=== PATIENT | female | born 1985 | race Caucasian/White ===

== ENCOUNTER → 2017-04-13 | Outpatient (CLI) | payer MEDICAID, OTHER ==
--- NOTE | 2017-04-14 07:21 | XR ---
EXAMINATION TYPE: XR ribs RT DATE OF EXAM: 04/13/2017 COMPARISON: NONE HISTORY: Pain TECHNIQUE: 4 views submitted FINDINGS: Lung is clear. Osseous structures are intact. Rib cage is intact. IMPRESSION: No acute displaced rib fracture.
== END ==
LOC: RADXRMAIN 17:50
PROVIDERS: ATTEND Family Medicine
DX: R07.81 Pleurodynia (principal)

== ENCOUNTER 2017-06-28 01:34 | Emergency (ER) | payer MEDICAID, OTHER ==
--- NOTE | 2017-06-28 02:06 | ED ---
General Adult HPI - General Chief complaint: Recheck/Abnormal Lab/Rx Stated complaint: [facility] blood exposure Time Seen by Provider: 06/28/17 01:46 Source: patient Mode of arrival: ambulatory Limitations: no limitations - History of Present Illness Initial comments: 32-year-old female patient presented to the emergency department today for evaluation after being sprayed in the face by a patient's blood. Patient states she was at work performing an Accu-Chek when the blood spurted and hit her in the face. Patient states she was wearing contact lenses. She is not completely sure if the blood went into her eye. States she did remove her contacts and flushed the eye immediately after the exposure. She denies any current physical concerns or symptoms. This occurred approximately 30 minutes prior to arrival here in the department. - Related Data Home Medications Medication Instructions Recorded Confirmed ALPRAZolam [Xanax] 0.25 mg PO DAILY PRN 06/28/17 06/28/17 Citalopram Hydrobromide [CeleXA] 40 mg PO DAILY 06/28/17 06/28/17 Dextroamphetamine/Amphetamine 20 mg PO BID 06/28/17 06/28/17 [Adderall] Levothyroxine Sodium [Synthroid] 175 mcg PO DAILY 06/28/17 06/28/17 Allergies Allergy/AdvReac Type Severity Reaction Status Date / Time No Known Allergies Allergy Verified 06/28/17 01:41 Review of Systems ROS Statement: Those systems with pertinent positive or pertinent negative responses have been documented in the HPI. ROS Other: All systems not noted in ROS Statement are negative. Past Medical History Additional Past Medical History / Comment(s): Hypothyroid History of Any Multi-Drug Resistant Organisms: None Reported Past Surgical History: Section, Tonsillectomy Past Psychological History: ADD/ADHD, Anxiety, Depression, Panic Disorder, PTSD Smoking Status: Never smoker Past Alcohol Use History: Rare Past Drug Use History: None Reported General Exam Limitations: no limitations General appearance: alert, in no apparent distress, other (This is a well- developed, well-nourished adult female patient in no acute distress. Vital signs upon presentation were temperature 97.8F, pulse 82, respirations 16, blood pressure 155/88, pulse ox 98% on room air.) Eye exam: Present: normal appearance, PERRL, EOMI. Absent: scleral icterus, conjunctival injection, periorbital swelling ENT exam: Present: normal exam, normal oropharynx, mucous membranes moist Respiratory exam: Present: normal lung sounds bilaterally. Absent: respiratory distress, wheezes, rales, rhonchi, stridor Cardiovascular Exam: Present: regular rate, normal rhythm, normal heart sounds. Absent: systolic murmur, diastolic murmur, rubs, gallop, clicks Neurological exam: Present: alert, oriented X3, CN II-XII intact Psychiatric exam: Present: normal affect, normal mood Skin exam: Present: warm, dry, intact, normal color. Absent: rash Course Vital Signs 06/28/17 01:36 Temperature 97.8 F Pulse Rate 82 Respiratory 16 Rate Blood Pressure 155/88 O2 Sat by Pulse 98 Oximetry Medical Decision Making - Medical Decision Making 32-year-old female patient presents to the emergency department today for evaluation after being exposed to a patient's blood. Physical examination is unremarkable. Patient's blood has been drawn and sent for the appropriate postexposure testing. Source blood is being drawn and sent to lab for testing. Did discuss with patient follow-up with [employer] employee health for further information. I instructed her to return here immediately for any new, worsening, or concerning symptoms. She verbalizes understanding and agrees this plan. Disposition Clinical Impression: Exposure to blood Disposition: HOME SELF-CARE Condition: Good Instructions: Body Substance Exposure (ED) Additional Instructions: Follow-up with employee health for further evaluation. We will contact you regarding results after source blood is tested. Follow-up with S for any further needs. Return here immediately for any new, worsening, or concerning symptoms. Referrals: Penelope Terry MD [Primary Care Provider] - 1-2 days Time of Disposition: 02:06
[2017-06-28 23:17] VITALS: BP 155/88; PULSE 82; RESP 16; TEMP 97.8
== END 2017-06-28 02:27 | disposition home or self-care (01) ==
LOC: EC 01:34
DX: Z77.21 Contact with and (suspected) exposure to potentially hazardous body fluids (principal); E03.9 Hypothyroidism, unspecified; F41.9 Anxiety disorder, unspecified; F32.9 Major depressive disorder, single episode, unspecified; F43.10 Post-traumatic stress disorder, unspecified; F90.9 Attention-deficit hyperactivity disorder, unspecified type
CPT/HCPCS: 99283

== ENCOUNTER 2021-03-31 07:04 | Day surgery (SDC) | payer OTHER ==
[2021-03-29 11:46] VITALS: BMI 37.5
--- NOTE | 2021-03-30 20:04 | P.HPOR ---
History of Present Illness H&P Date: 03/30/21 Chief Complaint: Left DeQuervain's Tenosynovitis Hand Surgery H&P Note Age: 35 year Height: 5'7" Weight: 230 lbs BMI: 36.02 kg/m2 Subjective: This is a 35 year old female that presents today for evaluation regarding left radial sided wrist pain that has been worsening over the the last 6 months. Patients states she has been having sharp pain that is worse with lifting objects that is located over the radial aspect of the wrist. She denies any paresthesias. She has been seeing Dr. Mc for her symptoms and has been wearing a splint during the day time. She has also received 2 injections with the most recent being in January but states the injections are providing some relief but she is still having substantial discomfort. She has no other complaints at this time. Physical Examination: LUE: AIN/PIN/Radial/Ulnar/Median motor intact. Radial/Ulnar/Median SILT. 2+/4 Radial/Ulnar pulses palpated. Negative CMC grind, positive David. TTP over 1st dorsal compartment. NTTP over A1 Amber of thumb. Wrist flexion/extension 80/80 Impression: 1.) Left DeQuervains Tenosynovitis Plan: Diagnosis and treatment options were discussed with the patient. She has failed conservative treatment for her left DeQuervains tenosynovitis and states the injections and splinting are no longer helping. We discussed that she is a candidate for a left first dorsal compartment release since her symptoms are still present despite these conservative measures. Risks and benefits of surgery including recurrence, bleeding, damage to surrounding tissue, infection and risks of anesthesia were discussed and she would like to proceed with surgical intervention. We will tentatively plan for a left first dorsal compartment release in the near future. All questions were answered. -Curtis Browning DO Orthopedic Hand/Upper Extremity Surgeon Past Medical History Past Medical History: Thyroid Disorder Additional Past Medical History / Comment(s): Tinnitus. Hypothyroid. Mirena IUD. History of Any Multi-Drug Resistant Organisms: None Reported Past Surgical History: Section, Tonsillectomy Past Anesthesia/Blood Transfusion Reactions: No Reported Reaction Past Psychological History: ADD/ADHD, Anxiety, Depression, Panic Disorder, PTSD Smoking Status: Never smoker Past Alcohol Use History: Rare Past Drug Use History: None Reported - Past Family History Mother Family Medical History: Cancer Additional Family Medical History / Comment(s): Breast cancer. Medications and Allergies Home Medications Medication Instructions Recorded Confirmed Type Citalopram Hydrobromide [CeleXA] 40 mg PO QAM 06/28/17 03/29/21 History Ibuprofen 800 mg PO Q8H PRN 03/29/21 03/29/21 History Levothyroxine Sodium 25 mcg PO QAM 03/29/21 03/29/21 History Levothyroxine Sodium 200 mcg PO QAM 03/29/21 03/29/21 History Melatonin 10 mg PO HS PRN 03/29/21 03/29/21 History buPROPion XL [Wellbutrin XL] 150 mg PO BID 03/29/21 03/29/21 History Allergies Allergy/AdvReac Type Severity Reaction Status Date / Time No Known Allergies Allergy Verified 03/29/21 11:37 Physical Examination Osteopathic Statement: *. No significant issues noted on an osteopathic structural exam other than those noted in the History and Physical/Consult.
[~2021-03-31 07:04] MED LIST: HYDROmorphone 0.5 MG/0.5 ML SYRINGE IVP PRN; LACTATED RINGERS 1,000 ML IV SCH
[2021-03-31 07:31] VITALS: RESP 16; TEMP 97.2
[2021-03-31] MEDS ORDERED: ONDANSETRON 4 MG/2 ML VIAL ONE (07:39)
[2021-03-31] MEDS ORDERED: ONDANSETRON 4 MG/2 ML VIAL IVP ONE (07:42)
[2021-03-31] MEDS ORDERED: DEXAMETHASONE SOD PHOSPHATE 4 MG/ML 1 ML VIAL IVP ONE (07:43)
[2021-03-31] MEDS ORDERED: MIDAZOLAM 2 MG/2 ML VIAL ONE (07:52)
[2021-03-31] MEDS ORDERED: LIDOCAINE 1% INJ 10MG/ML (20 ML MDV) ONE (07:52)
[2021-03-31] MEDS ORDERED: fentaNYL (PF) 50 MCG/ML 2 ML AMP ONE (07:52)
[2021-03-31] MEDS ORDERED: PROPOFOL 10 MG/ML 20 ML VIAL IV ONE (07:52)
[2021-03-31] MEDS ORDERED: LIDOCAINE 1% INJ 10MG/ML (20 ML MDV) SQ ONE (08:05)
[2021-03-31] MEDS ORDERED: BUPIVACAINE (PF) 0.5% 30 ML VIAL SQ ONE (08:05)
[2021-03-31 08:48] VITALS: BP 115/77; PULSE 86
--- NOTE | 2021-03-31 08:54 | P.OP ---
Date of Procedure: 03/31/21 Preoperative Diagnosis: Left DeQuervains Tenosynovitis Postoperative Diagnosis: Same Procedure(s) Performed: Left wrist first dorsal extensor compartment release Anesthesia: MAC Surgeon: Curtis Browning Estimated Blood Loss (ml): 0 Pathology: none sent Condition: stable Disposition: PACU Description of Procedure: This is a 35 year old female with left DeQuervain's tenosynovitis that has failed conservative treatment. Risks and benefits of surgery were discussed with the patient including bleeding, damage to surrounding tissue, infection, need for further surgery as well as risks of anesthesia including pulmonary embolism and even and the patient wished to proceed with surgical intervention. The patients was seen in the pre-operative area by myself. Consent and H&P were completed and updated. The correct extremity was marked in the pre- operative area by myself and all other questions were answered. Operative Narrative: The patient was brought to the operating room by the department of anesthesia. They remained on the portable stretcher and a rolling hand table was brought to the side of the operative extremity. The left wrist was then prepped with alcohol swab and a mixture of 0.5% bupivicaine and 1% lidocaine was injected proximal to the area of the first dorsal compartment in the area of the superficial radial sensory nerve. The patient was then drifted off to sleep by the department of anesthesia under MAC anesthesia. A nonsterile tourniquet was then applied to the operative extremity and the left upper extremity was then prepped and draped in normal sterile fashion. Pre-operative time out was performed indicating the correct patient, procedure and laterality. All in the room agreed. Pre-operative antibiotics were given prior to skin incision. The operative extremity was the exsanguinated with an esmarch bandage and the tourniquet was inflated to 250mmHg. 15 blade scalpel was used to make a horizontal skin incision centered over the first dorsal compartment of the left wrist. Blunt dissection was taken down to the proximal edge of the first dorsal compartment while taking care to identify and protect branches of the superficial radial sensory nerve. The first dorsal compartment was released in it entirety from proximal to distal. APL and EPB tendons were identified. Of note, the patient did have a completely separate fibro-osseous tunnel for the EPB tendon and this was also released in it's entirety. Traction tenolysis was performed on EPB/APL tendons and they were able to glide freely. Skin closure was performed with 4-0 monocryl suture, mastisol and steri strips. Sterile soft dressing was applied consisting of 4x4's cast padding and an bolivar wrap. Tourniquet was let down and the hand had immediate normal perfusion. The patient was then woken by the department of anesthesia and transferred to PACU in stable condition. Curtis Browning D.O. Orthopedic Hand/Upper Extremity Surgeon
== END 2021-03-31 09:09 | disposition home or self-care (01) ==
LOC: OR 07:04
PROVIDERS: ATTEND Orthopaedic Surgery Hand Surgery
DX: M65.4 Radial styloid tenosynovitis [de Quervain] (principal); H93.19 Tinnitus, unspecified ear; E03.9 Hypothyroidism, unspecified; F41.9 Anxiety disorder, unspecified; F32.9 Major depressive disorder, single episode, unspecified; F41.0 Panic disorder [episodic paroxysmal anxiety]; F43.10 Post-traumatic stress disorder, unspecified; Z97.5 Presence of (intrauterine) contraceptive device; Z98.891 History of uterine scar from previous surgery; Z98.890 Other specified postprocedural states; Z80.3 Family history of malignant neoplasm of breast; Z79.890 Hormone replacement therapy; Z79.899 Other long term (current) drug therapy
CPT/HCPCS: 81025; 25000; J2250; J1100; J0690; J2405; J2001; J3010; J2704

== ENCOUNTER → 2022-04-13 | Outpatient (CLI) | payer OTHER ==
--- NOTE | 2022-04-13 15:39 | P.SLEEP ---
History of Present Illness DATE: 04/13/2022 CONSULTATION/NEW PATIENT EVALUATION HISTORY OF PRESENT ILLNESS/SLEEP-WAKE EVALUATION: 36year old lady had been ev aluated in the sleep center for possible obstructive sleep apnea hypopnea syndrome. SLEEP SCHEDULE: Usually sleep schedule on weekdays 911 PM until 78 AM, during days off 1112 until 911 AM. FALLING ASLEEP: Sometimes patient has problems with falling asleep, has TV set and bedroom. DURING SLEEP: Patient usually sleeps on the side position with extremely loud snoring and witnessed episodes stopped breathing during the sleep. No history of hypnogogical hallucinations, sleep paralysis, or cataplexy. DURING THE DAY/WAKE STATE: Patient feels significant sleepiness during the day. [place] sleepiness scale is in high range of 16 and this while patient is on treatment with Adderall.[]. PAST MEDICAL HISTORY: Depression, anxiety, ADHD, hypothyroidism. PAST SURGICAL HISTORY: 2, left wrist surgery. MEDICATIONS: Celexa 40 mg once a day, levothyroxine 225 g once a day, Adderall extended release 20 mg once a day, vitamin D, melatonin 5 mg occasionally. SOCIAL HISTORY: Negative for smoking, alcohol consumption occasional. FAMILY HISTORY: Asthma, cancer. REVIEW OF SYSTEMS: Loud snoring, multiple awakenings from sleep, significant excessive daytime sleepiness. No fevers. No double vision. No recent chest pain. No shortness of breath. No abdominal pain. No bleeding episodes. No blood in urine. No seizure episodes. PHYSICAL EXAMINATION: GENERAL: A pleasant patient without any distress. VITAL SIGNS: BP 110/75, HR 74, RR 16, weight 249.2 pounds, height 5 foot 8 inches, body mass index 37.8. HEENT: PERRLA, EOMI. Evaluation of oropharynx showed tongue protrudes midline, low position of soft palate Mallampati 4. NECK: Supple. No JVD. Thyroid is not palpable. 17 inches in circumference. LUNGS: Clear to percussion and to auscultation. Good air exchange. No wheezing or rhonchi. HEART: S1, S2 regular. No murmurs, gallops or rubs. ABDOMEN: Soft and nontender. Bowel sounds are present. No organomegaly appreciated. Obese EXTREMITIES: No clubbing or cyanosis. STEEL HANDLER: Awake, alert, and oriented x3. Cranial nerves 2 to 7 intact. There is no fasciculation or atrophy noted. No focal deficits observed. ASSESSMENT: 1. Loud snoring, witnessed episodes of sleep apneas, extremely low position of soft palate, sleepiness. Obstructive sleep apnea hypopnea syndrome. 2. Significant excessive daytime sleepiness with the very high [place] Sleepiness Scale of 16 while patient is on treatment with Adderall dictate necessity to include the hypersomnia and narcolepsy type II in differential diagnosis as additional diagnosis. 3 obesity body mass index 37.8. 4. Depression. 5 and anxiety. 6. Hypothyroidism. 7. History of ADHD. 8. Status post tonsillectomy. 9. Status post x 2. 10. Status post left wrist surgery. PLAN: 1. Polysomnography for evaluation of patient's breathing during sleep. 2. CPAP/BiPAP titration if sleep study confirms obstructive sleep apnea- hypopnea syndrome. 3. Preferable position during sleep on the side. 4. No driving if patient feels any sleepiness. Patient is aware of civil and criminal liability for unsafe driving. 5. Sleep hygiene with regular sleep time for at least 7.5-8 hours. 6. Watching and losing weight. Thank you very much for referring this patient for consultation. Sincerely, Stanislav Walker MD, PhD, FAASM. Diplomat of [place] [employer], Sleep Medicine Board by [place] [employer] [place] [employer] [facility] [place] Past Medical History Additional Past Medical History / Comment(s): Hypothyroid History of Any Multi-Drug Resistant Organisms: None Reported Past Surgical History: Section, Tonsillectomy Past Psychological History: ADD/ADHD, Anxiety, Depression, Panic Disorder, PTSD Past Alcohol Use History: Rare Past Drug Use History: None Reported Medications and Allergies Home Medications Medication Instructions Recorded Confirmed Type Citalopram Hydrobromide [CeleXA] 40 mg PO QAM 06/28/17 03/31/21 History Ibuprofen 800 mg PO Q8H PRN 03/29/21 03/31/21 History Levothyroxine Sodium 25 mcg PO QAM 03/29/21 03/31/21 History Levothyroxine Sodium 200 mcg PO QAM 03/29/21 03/31/21 History Melatonin [Melatonin ER] 10 mg PO HS PRN 03/29/21 03/31/21 History buPROPion XL [Wellbutrin XL] 150 mg PO BID 03/29/21 03/31/21 History Allergies Allergy/AdvReac Type Severity Reaction Status Date / Time No Known Allergies Allergy Verified 03/31/21 07:25 Sleep Note - Sleep Note Sleep Note: Temperature: Pulse Rate: Respiratory Rate: Blood Pressure: SpO2: Height: Weight: BMI: Neck Circumference:
== END ==
LOC: SLEEP 15:03
PROVIDERS: ATTEND Internal Medicine
DX: G47.33 Obstructive sleep apnea (adult) (pediatric) (principal); F32.A Depression, unspecified; F41.9 Anxiety disorder, unspecified; E03.9 Hypothyroidism, unspecified; Z86.59 Personal history of other mental and behavioral disorders; Z90.89 Acquired absence of other organs; Z98.890 Other specified postprocedural states
CPT/HCPCS: 99211

== ENCOUNTER 2024-12-25 10:18 | Inpatient (IN) | payer OTHER ==
[2024-12-25] MEDS: LACTATED RINGERS 1,000 ML IV ONE (10:40)
[2024-12-25] MEDS ORDERED: METHYLERGONOVINE 0.2 MG/ML 1 ML AMP IM PRN (10:55)
[2024-12-25] MEDS ORDERED: OXYTOCIN 10 UNIT/ML 1 ML VIAL IM PRN (10:55)
[2024-12-25] MEDS ORDERED: CARBOPROST TROMETHAMINE 250 MCG/ML 1 ML AMP IM PRN (10:55)
[2024-12-25] MEDS ORDERED: TRANEXAMIC 1,000 MG/100ML-NACL 1,000 MG in EMPTY BAG 1 BAG IV PRN (10:55)
[2024-12-25] MEDS ORDERED: OXYTOCIN 30 UNITS/500 ML NS 30 UNIT in SALINE 1 500ML.BAG IV SCH (11:00)
[2024-12-25 11:09] LABS: Basophils # (A) 0.03 10*3/uL (0.00-0.10); Basophils % (A) 0.3 %; Eosinophils # (A) 0.05 10*3/uL (0.04-0.35); Eosinophils % (A) 0.5 %; HCT 35.3 % (37.2-46.3); HGB 11.9 g/dL (12.0-15.0); Lymphocytes # (A) 1.78 10*3/uL (0.90-5.00); Lymphocytes % (A) 18.6 %; MCH 29.3 pg (27.0-32.0); MCHC 33.7 g/dL (32.0-37.0); MCV 86.9 fL (80.0-97.0); Monocytes # (A) 0.58 10*3/uL (0.20-1.00); Monocytes % (A) 6.1 %; Neutrophils # (A) 7.00 10*3/uL (1.80-7.70); Neutrophils % (A) 73.0 %; Platelet Count 232 10*3/uL (140-440); RBC 4.06 10*6/uL (4.10-5.20); RDW 14.2 % (11.5-14.5); WBC 9.58 10*3/uL (4.50-10.00)
[2024-12-25] MEDS: CITRIC ACID-SODIUM CITRATE 15 ML CUP PO ONE (11:43)
[2024-12-25] MEDS ORDERED: MORPHINE SULFATE (PF) 0.3 MG/0.3 ML SYR ONE (12:07)
[2024-12-25] MEDS ORDERED: NALBUPHINE (ANES) 10 MG/ML - 1 ML AMP ONE (12:07)
[2024-12-25] MEDS ORDERED: ePHEDrine 50 MG/ML 1 ML VIAL ONE (12:07)
[2024-12-25] MEDS ORDERED: ONDANSETRON 4 MG/2 ML VIAL ONE (12:07)
[2024-12-25] MEDS ORDERED: OXYTOCIN 30 UNITS/500 ML NS BAG IV ONE (12:07)
[2024-12-25] MEDS ORDERED: ZOLPIDEM 5 MG TAB PO PRN (12:57)
[2024-12-25] MEDS ORDERED: diphenhydrAMINE 50 MG/ML 1 ML VIAL IVP PRN (12:57)
[2024-12-25] MEDS ORDERED: NALOXONE 0.4 MG/ML 1 ML VIAL IV PRN (12:57)
[2024-12-25] MEDS ORDERED: ONDANSETRON 4 MG/2 ML VIAL IVP PRN (12:57)
[2024-12-25] MEDS ORDERED: METOCLOPRAMIDE 5 MG/ML 2 ML VIAL IVP PRN (12:57)
[2024-12-25] MEDS ORDERED: diphenhydrAMINE 25 MG CAP PO PRN (12:57)
--- NOTE | 2024-12-25 13:02 | P.HPOB ---
History of Present Illness H&P Date: 12/25/24 Chief Complaint: IUP at 39-2/7 weeks, history of section desires repeat This is a 39-year-old 3 para 2-0-0-2 that presented to labor and delivery at 39-2/7 weeks for scheduled repeat section. Estimated due date of 12/30 based on good dating parameters. Patient has been receiving routine care which has been complicated by diagnosis of gestational diabetes. Blood sugars have been well-controlled with diet alone. Patient notes good movement denies vaginal bleeding or loss of fluid. On blood work this patient is O+ of a negative, rubella status immune, hepatitis B surface engine negative, HIV negative, RPR nonreactive, grew beta strep culture negative. Review of Systems Constitutional: Denies chills, Denies fatigue, Denies fever Ears, nose, mouth and throat: Denies headache Cardiovascular: Reports leg edema Respiratory: Denies dyspnea Gastrointestinal: Denies constipation, Denies diarrhea, Denies nausea, Denies vomiting Genitourinary: Reports Past Medical History Additional Past Medical History / Comment(s): Hypothyroid History of Any Multi-Drug Resistant Organisms: None Reported Past Surgical History: Section, Tonsillectomy Past Anesthesia/Blood Transfusion Reactions: No Reported Reaction Past Psychological History: ADD/ADHD, Anxiety, Depression, Panic Disorder, PTSD Smoking Status: Never smoker Past Alcohol Use History: None Reported, Rare Past Drug Use History: None Reported - Past Family History Father Family Medical History: No Reported History Medications and Allergies Home Medications Medication Instructions Recorded Confirmed Type Levothyroxine Sodium 25 mcg PO QAM 03/29/21 12/25/24 History Levothyroxine Sodium 200 mcg PO QAM 03/29/21 12/25/24 History metFORMIN HCL 1,000 mg PO DAILY 12/25/24 12/25/24 History Allergies Allergy/AdvReac Type Severity Reaction Status Date / Time No Known Allergies Allergy Verified 12/25/24 10:51 Exam Osteopathic Statement: *. No significant issues noted on an osteopathic structural exam other than those noted in the History and Physical/Consult. Vital Signs Temp Pulse Resp BP Pulse Ox 12/25/24 10:59 97.0 F L 78 16 125/71 97 Intake and Output 12/24/24 12/25/24 12/25/24 22:59 06:59 14:59 Other: Weight 108.862 kg Targeted physical exam was performed this date in general is a well-nourished well-developed female in no acute distress, breathing is nonlabored, heart has a regular rate and rhythm, abdomen is gravid, cervical exam is deferred, heart tones noted to be category 1 and she is not vida. Results Result Diagrams: 12/25/24 10:40 Abnormal Lab Results - Last 24 Hours (Table) 12/25/24 Range/Units 10:40 RBC 4.06 L (4.10-5.20) 10*6/uL Hgb 11.9 L (12.0-15.0) g/dL Hct 35.3 L (37.2-46.3) % Immature Gran # 0.14 H (0.00-0.04) 10*3/uL Assessment and Plan (1) Term Current Visit: Yes Status: Acute Code(s): Z34.90 - ENCNTR FOR SUPRVSN OF NORMAL , UNSP, UNSP TRIMESTER SNOMED Code(s): 92222949 (2) GDM (gestational diabetes mellitus), class A1 Current Visit: Yes Status: Acute Code(s): O24.410 - GESTATIONAL DIABETES MELLITUS IN , DIET CONTROLLED SNOMED Code(s): 72319637 (3) History of section Current Visit: Yes Status: Acute Code(s): Z98.891 - HISTORY OF UTERINE SCAR FROM PREVIOUS SURGERY SNOMED Code(s): 529950198 Plan: Admit to labor and delivery Proceed with repeat section per patient preference Informed consent is obtained, risks are reviewed including but not limited to infection, bleeding, damage to bladder, bowel, injury. Questions are answered and patient states understanding anesthesia into see patient
--- NOTE | 2024-12-25 13:05 | P.OP ---
Date of Procedure: 12/25/24 Preoperative Diagnosis: IUP at 39-2/7 weeks, history of section x 2 desires repeat Postoperative Diagnosis: Same Procedure(s) Performed: Repeat section Anesthesia: spinal Surgeon: Danyell Watts Certified Adapted Physical Educator #1: Cat Herrera Estimated Blood Loss (ml): 500 IV fluids (ml): 1,600 Urine output (ml): 200 (Clear yellow) Pathology: none sent Condition: stable Disposition: observation Indications for Procedure: History of section x 2, desires repeat Operative Findings: Viable male delivered at 1228, weight of 7 pounds 11 ounces, Apgars of 9 and 9 at 1 and 5 minutes respectively Description of Procedure: The patient was prepped and draped in the usual fashion after spinal anesthesia was administered by the anesthesia department. A Pfannenstiel incision was made and extended of the abdominal cavity without difficulty. The bladder peritoneum was elevated and incised and reflected distally. A 2 cm incision was made in the transverse plane of the lower uterine segment to enter the uterus at which time clear fluid was noted. The incision was extended in both directions using the bandage scissors. The head was encountered within the field and delivered up and through the incision where the nose and mouth were thoroughly suctioned. Vacuum assist was used to bring the head through the hysteroto my incision, remainder of the infant was delivered onto the surgical field where the cord was doubly clamped, cut, and the infant was passed for resuscitative measures with weight and Apgars as noted above. The placenta was delivered manually, intact, and was grossly normal with a grossly normal three-vessel cord. The uterus was exteriorized and the interior cavity of the uterus swept of any remaining placental and membranous fragments with a laparotomy sponge. The margins of the incision were grasped with Allis clamps and the incision closed in 2 layers. First layer was a running locking layer of 0 Vicryl from margin to margin followed by a second layer of imbricating 0 Vicryl from margin to margin. Any small points of bleeding were then made hemostatic with the Bovie. Once hemostasis was achieved, the posterior cul-de-sac was suctioned with a guard and the uterine and ovarian findings are as noted above. The uterus was replaced within the abdominal cavity and the gutters swept of any remaining blood fluid or clot. The incision was again reexamined and hemostasis was noted to be excellent. Any small point of bleeding were made hemostatic with the Bovie. Once hemostasis was achieved the parietal peritoneum was loosely reapproximated. The layer of muscles were examined and made hemostatic with the Bovie. Attention was then turned to the fascia which was closed with 0 Vicryl in a running fashion from 1 lateral edge to the other. The subcutaneous tissues were irrigated, made hemostatic with the Bovie, and reapproximated with a running stitch of 30 Vicryl. The skin was reapproximated with 4-0 Vicryl. Estimated blood loss for the case was approximately 500 mL. All sponge instrument and needle counts are correct. There were no complications. The patient tolerated the procedure well and proceeded to the recovery room in stable condition. Both mother and infant are resting comfortably in recovery. A physician certified surgical tech/first assistant was utilized for the entire procedure due to the need for tissue retraction, dissection of vital structures, prevention and management of blood loss and reduction in overall operative and anesthesia time as is the standard of care.
[2024-12-25] MEDS: ACETAMINOPHEN IV (For NPO) 1,000 MG in EMPTY BAG 1 BAG IVPB ONE (13:46)
[2024-12-25] MEDS: LACTATED RINGERS 1,000 ML IV SCH ×2 (13:47→19:51)
[2024-12-25] MEDS: diphenhydrAMINE 50 MG/ML 1 ML VIAL IVP PRN (17:35)
[2024-12-25] MEDS: SENNOSIDES-DOCUSATE SODIUM 1 EACH TAB PO SCH (21:21)
[2024-12-25] MEDS: IBUPROFEN IV 800 MG in SODIUM CHLORIDE 0.9% 250 ML IV ONE (21:23)
[2024-12-25] MEDS: ACETAMINOPHEN TAB 500 MG TAB PO SCH (21:54)
[2024-12-26] MEDS: IBUPROFEN 800 MG TAB PO SCH (04:36)
[2024-12-26 07:24] LABS: Basophils # (A) 0.02 10*3/uL (0.00-0.10); Basophils % (A) 0.2 %; Eosinophils # (A) 0.06 10*3/uL (0.04-0.35); Eosinophils % (A) 0.6 %; HCT 30.2 % (37.2-46.3); Lymphocytes # (A) 1.69 10*3/uL (0.90-5.00); Lymphocytes % (A) 16.3 %; MCH 29.7 pg (27.0-32.0); MCHC 33.1 g/dL (32.0-37.0); MCV 89.6 fL (80.0-97.0); Monocytes # (A) 0.66 10*3/uL (0.20-1.00); Monocytes % (A) 6.4 %; Neutrophils # (A) 7.84 10*3/uL (1.80-7.70); Neutrophils % (A) 75.8 %; Platelet Count 191 10*3/uL (140-440); RBC 3.37 10*6/uL (4.10-5.20); RDW 14.4 % (11.5-14.5); WBC 10.34 10*3/uL (4.50-10.00)
[2024-12-26 07:26] LABS: HGB 10.0 g/dL (12.0-15.0)
--- NOTE | 2024-12-26 12:24 | P.PNOBGPC ---
Subjective - Subjective Principal diagnosis: Postop day 1, repeat section Interval history: Patient is doing well postoperatively. She is ambulating and voiding without difficulty. She states her pain is moderately well-controlled. Her lochia is minimal. Patient reports: Reports appetite normal, Reports voiding normally, Reports pain well controlled, Reports ambulating normally : doing well, nursing well Objective - Vital Signs Latest vital signs: Vital Signs Temp Pulse Resp BP Pulse Ox 12/26/24 08:50 98.0 F 72 16 99/63 98 12/26/24 01:00 80 16 118/69 98 12/25/24 16:00 98.0 F 75 16 123/59 97 12/25/24 15:00 75 16 121/67 95 12/25/24 14:45 73 16 120/57 97 12/25/24 14:30 78 16 122/56 12/25/24 14:15 68 16 119/59 12/25/24 14:00 70 16 120/59 12/25/24 13:45 73 16 119/56 98 12/25/24 13:30 75 16 126/62 12/25/24 13:15 87 16 121/58 94 L 12/25/24 13:00 97.0 F L 79 16 122/59 94 L Intake and Output 12/25/24 12/26/24 12/26/24 22:59 06:59 14:59 Output Total 400 1900 Balance -400 -1900 Output: Urine 400 1900 Uretheral (Reyes) 900 Output, Quantitative 0 Blood Loss Other: # Voids 0 - Exam Extremities: Present: normal, edema Abdomen: Present: normal appearance, soft Incision: Present: normal, dry, intact Uterus: Present: normal, firm - Labs Labs: Abnormal Lab Results - Last 24 Hours (Table) 12/26/24 Range/Units 07:11 WBC 10.34 H (4.50-10.00) 10*3/uL RBC 3.37 L (4.10-5.20) 10*6/uL Hgb 10.0 L D (12.0-15.0) g/dL Hct 30.2 L (37.2-46.3) % Immature Gran # 0.07 H (0.00-0.04) 10*3/uL Neutrophils # 7.84 H (1.80-7.70) 10*3/uL Assessment and Plan (1) Term Current Visit: Yes Status: Acute Code(s): Z34.90 - ENCNTR FOR SUPRVSN OF NORMAL , UNSP, UNSP TRIMESTER SNOMED Code(s): 85374902 (2) GDM (gestational diabetes mellitus), class A1 Current Visit: Yes Status: Acute Code(s): O24.410 - GESTATIONAL DIABETES MELLITUS IN , DIET CONTROLLED SNOMED Code(s): 80318814 (3) History of section Current Visit: Yes Status: Acute Code(s): Z98.891 - HISTORY OF UTERINE SCAR FROM PREVIOUS SURGERY SNOMED Code(s): 943653904 (4) Status post section Current Visit: Yes Status: Acute Code(s): Z98.891 - HISTORY OF UTERINE SCAR FROM PREVIOUS SURGERY SNOMED Code(s): 482726983 Plan: Doing well postoperatively. Plan to continue routine postoperative care and anticipate discharge home tomorrow
--- NOTE | 2024-12-26 14:49 | P.PN ---
Progress Note - Text Progress Note Date: 12/26/24 Anesthesia Postop day 1 Subjective: Status Post section with Duramorph. Patient seen and examined. Doing well without complaint. VAS 0. No nausea vomiting or pruritus. Denies fever. Gross lower extremity strength intact. Without apparent anesthetic complications. Objective: Vital signs reviewed Heart: Regular Rate Lungs: Good chest excursion Abdomen: Appears nondistended Assessment: Status post section with Duramorph postop day 1 Plan: 1. Continue current care with your medical management. Anticipated end to the duration of the Duramorph around surgery time today. You may see increased pain needs around this time. 2. This note was dictated using [employer]is software. Please be advised there is a potential for misspellings or errors in boil off machine operator cloth.
[2024-12-26] MEDS ORDERED: IBUPROFEN 800 MG TAB PO SCH (17:30)
[2024-12-26] MEDS: SIMETHICONE 80 MG CHEWABLE PO PRN (22:08)
[2024-12-27 01:25] VITALS: RESP 16
[2024-12-27 08:43] VITALS: BP 104/62; PULSE 72; TEMP 97.2
--- NOTE | 2024-12-27 11:14 | P.DS ---
Providers Date of admission: 12/25/24 10:18 Expected date of discharge: 12/27/24 Attending physician: Danyell Watts Primary care physician: Stated None - Discharge Diagnosis(es) (1) Status post section Current Visit: Yes Status: Acute Hospital Course: The patient is a 39-year-old 3 para 2-0-0-2 who presented to labor and delivery at 39-2/7 weeks for repeat section. Her has been complicated by gestational diabetes with excellent diet control and reassuring testing weekly after 32 weeks. On labor delivery, all signs are reassuring with a category 1 heart rate tracing. She was taken to the operating room where she underwent repeat low-transverse section in an uncomplicated fashion and was delivered of a viable 7 pound 11 ounce baby boy with Apgars of 9 at 1 minute and 9 at 5 minutes. Her and postoperative course was unremarkable with vital signs remaining stable and her temperature was afebrile throughout. She was deemed stable for discharge on and postoperative day #2. She was discharged home to follow-up in the office in 2 weeks for an incision check in 6 weeks routinely. Discharge instructions included calling for any significantly increased bleeding or foul- smelling lochia, significantly increased fever abdominal pain, perineal complaints, breast complaints, incisional complaints, or anything else that concerned her. She was additionally instructed to have nothing in the vagina for at least 6 weeks time to include intercourse and to abstain from any heavy lifting over the same period of time. She was lastly instructed to do no driving until off of all pain medications or 2 weeks time, whichever came first. She understood her instructions and agrees to follow-up as noted above. Discharge medications included continued vitamins as she has opted to breast-feed. She additionally was to use [id number] analgesic pain me dications. She was provided with a prescription for oxycodone 5 mg, 1-2 p.o. every 6 hours as needed pain, #20 dispensed with no refills. Maternal blood type is O+ and rubella status is immune. Discharge hemoglobin and hematocrit were 10.0 and 30.2 respectively. Procedures: #1. Repeat low-transverse section Patient Condition at Discharge: Stable Plan - Discharge Summary New Discharge Prescriptions: No Action Levothyroxine Sodium 25 mcg PO QAM Levothyroxine Sodium 200 mcg PO QAM metFORMIN HCL 1,000 mg PO DAILY Discharge Medication List Levothyroxine Sodium 25 mcg PO QAM 03/29/21 [History] Levothyroxine Sodium 200 mcg PO QAM 03/29/21 [History] metFORMIN HCL 1,000 mg PO DAILY 12/25/24 [History] Follow up Appointment(s)/Referral(s): Danyell Watts DO [Doctor of Osteopathic Medicine] - 01/08/25 1:15 pm (Appointment 02/06/2025 @ 1:15 PM) Patient Instructions/Handouts: (DC), (GEN) Activity/Diet/Wound Care/Special Instructions: [id number] ibuprofen 600 mg or 3 tablets every 6 hours as needed for pain. No tub baths or intercourse until 6 weeks . Routine postoperative check in 2 weeks. Should she having concerns prior to this appointment she is urged to call the office and be seen prior Discharge Disposition: HOME SELF-CARE
== END 2024-12-27 13:13 | disposition home or self-care (01) | DRG 788 ==
LOC: 4FBP 10:18
PROVIDERS: ADMIT Obstetrics & Gynecology Obstetrics; ATTEND Obstetrics & Gynecology Obstetrics
PROC: 10D00Z1 Extraction of Products of Conception, Low, Open Approach (ICD-10-PCS; principal; 2024-12-25 12:00)
DX: O34.211 Maternal care for low transverse scar from previous cesarean delivery (principal); E03.9 Hypothyroidism, unspecified; O24.425 Gestational diabetes mellitus in childbirth, controlled by oral hypoglycemic drugs; O99.284 Endocrine, nutritional and metabolic diseases complicating childbirth; O99.344 Other mental disorders complicating childbirth; F32.A Depression, unspecified; Z37.0 Single live birth; F41.0 Panic disorder [episodic paroxysmal anxiety]; F43.10 Post-traumatic stress disorder, unspecified; F90.9 Attention-deficit hyperactivity disorder, unspecified type; Z3A.39 39 weeks gestation of pregnancy
CPT/HCPCS: 85025; 86850; 86900; 86901